=== PATIENT | female | born 1955 | race Caucasian/White ===

== ENCOUNTER 2020-06-10 11:18 | Emergency (ER) | payer MEDICARE, SELFPAY ==
[2020-06-10 11:21] VITALS: BP 150/94; PULSE 84; RESP 16; TEMP 37; O2SAT 97; BMI 24.3
--- NOTE | 2020-06-10 11:22 | ED_ITS ---
HPI - Fall General: Chief Complaint: Extremity Injury, Lower Stated Complaint: RIGHT FOOT PAIN S/P FALL Time Seen by Provider: 06/10/20 11:18 Source: patient and EMS Mode of arrival: EMS Limitations: no limitations History of Present Illness: HPI Narrative: 64-year-old female who was walking and states she fell. States that she got her foot caught on the carpet and twisted it backwards when she fell on a severe ankle pain she rates an 8 out of 10. She states she also hit her head has some slight head and neck pain and is in a c-collar. She any other injuries Associated symptoms-after fall: Denies abdominal pain, chest pain or headache(s) Review of Systems Const: Denies: fever(s), chills, body aches or change in appetite Eyes: Denies: blurry vision or eye discomfort ENMT: Denies: throat pain or dental pain Card: Denies: chest pain Resp: Denies: dyspnea GI: Denies: abdominal pain, nausea, vomiting or diarrhea : Denies: dysuria Musc: Reports: joint pain Skin/Breast: Denies: rash Neuro: Denies: headache(s) Psych: Denies: depression Jose/Lymph: Denies: easy bruising All/Imm: Denies: urticaria Physical Exam Const: COMMON NORMALS: no acute distress, patient oriented x3 and healthy appearing HENMT: COMMON NORMALS: normocephalic and atraumatic HEAD & SCALP: normocephalic and atraumatic Eye: COMMON NORMALS: Equal, round and reactive pupils present and EOMs intact bilaterally PUPIL: Yes Equal, round and reactive pupils present Neck/C-Spine: COMMON NORMALS: full ROM and supple Chest: COMMONS NORMALS: normal inspection of the chest and normal palpation of entire chest wall Resp: COMMON NORMALS: normal respiratory effort, No retractions, No use of accessory muscles and clear to auscultation bilaterally AUSCULTATION: clear to auscultation bilaterally Cardio: COMMON NORMALS: regular rate, regular rhythm and No murmurs present (Cardio) RATE: regular rate RHYTHM: regular rhythm GI: COMMON NORMALS: Normal to inspection, nondistended, normoactive bowel sounds present, Soft to palpation, non-tender and no masses PALPATION: Yes Soft to palpation Extremity: NARRATIVE EXTREMITY EXAM: tenderness over right ankle Neuro: COMMON NORMALS: patient oriented x3, moves all extremities and no focal motor deficits Psych: COMMON NORMALS: mental status grossly normal, Normal thought process present and cooperative THOUGHT PROCESS: Normal thought process present Skin: COMMON NORMALS: no rashes or lesions noted and no wounds GENERAL SKIN EXAM: no rashes or lesions noted Course Vital Signs: Vital signs: Vital Signs Temperature 98.6 F 06/10/20 13:49 Pulse Rate 84 06/10/20 13:49 Respiratory Rate 16 06/10/20 13:49 Blood Pressure 118/80 06/10/20 13:49 Pulse Oximetry 98 06/10/20 13:49 MDM - Fall MDM Narrative: Medical decision making narrative: Patient presents here with ankle fracture from a fall. She does have a distal tibial fracture. Patient's CT here is negative. Patient is stable for discharge back home. She is to follow-up PCP and return if worsening. Will have case management contact her tomorrow about possible intermediate placement as she has had increased falls. Imaging Data^: CT Head: Radiologist's impression: [address] [address] [address] Scan Report Signed Patient: Janiya Suarez I Unit #: [id number] : 1955 Age/Sex: 64 / F ADM Date: 06/10/20 Loc: ER Room/Bed: Attending Dr: Ordering Provider/Ordering MD: Marsha De Leon MD Date of Service: 06/10/20 Procedure(s): CT head wo con* [id number] Accession Number(s): [id number] Report Number: [id number] PROCEDURE INFORMATION: Exam: CT Head Without Contrast Exam date and time: 06/10/2020 11:42 AM Age: 64 years old Clinical indication: Injury or trauma; Fall; Blunt trauma (contusions or hematomas) TECHNIQUE: Imaging protocol: Computed tomography of the head without contrast. Radiation optimization: All CT scans at this facility use at least one of these dose optimization techniques: automated exposure control; mA and/or kV adjustment per patient size (includes targeted exams where dose is matched to clinical indication); or iterative reconstruction. COMPARISON: MR head wo con* [id number] 03/31/2018 9:24 AM RADIATION DOSE METRICS: Total DLP (mGy-cm): 833.13 FINDINGS: Brain: There is no acute intracranial hemorrhage. No extra-axial fluid collection. No evidence of acute infarct. Kendrick white differentiation is intact. There is no evidence of mass. There is no mass effect or midline shift. Cerebral ventricles: No ventriculomegaly. Bones/joints: No acute fracture. Paranasal sinuses: There are mucous retention cysts and mucosal thickening in inferior bilateral maxillary sinuses.There is mild diffuse brain atrophy. Mastoid air cells: No significant mastoid effusion. Soft tissues: Unremarkable as visualized. CT/CT head wo con* [id number] IMPRESSION: No evidence of acute intracranial abnormality. No acute hemorrhage or acute skull fracture. Other CT: Radiologist's impression: [address] [address] [address] Scan Report Signed Patient: Janiya Suarez I Unit #: [id number] : 1955 Age/Sex: 64 / F ADM Date: 06/10/20 Loc: ER Room/Bed: Attending Dr: Ordering Provider/Ordering MD: Marsha De Leon MD Date of Service: 06/10/20 Procedure(s): CT cervical spin wo con* [id number] Accession Number(s): [id number] Report Number: [id number] PROCEDURE INFORMATION: Exam: CT Cervical Spine Without Contrast Exam date and time: 06/10/2020 11:42 AM Age: 64 years old Clinical indication: Injury or trauma; Fall; Blunt trauma TECHNIQUE: Imaging protocol: Computed tomography images of the cervical spine without contrast. Radiation optimization: All CT scans at this facility use at least one of these dose optimization techniques: automated exposure control; mA and/or kV adjustment per patient size (includes targeted exams where dose is matched to clinical indication); or iterative reconstruction. COMPARISON: MRI Cervical Spine w/o* [id number] 01/28/2018 3:14 PM RADIATION DOSE METRICS: Total DLP (mGy-cm): 464.97 FINDINGS: Vertebrae: There is no evidence of acute fracture. Alignment appears unremarkable. Discs/Spinal canal/Neural foramina: There are facet and uncinate osteophytes with cervical neural foraminal narrowing greatest at C3-C4 through C5-C6. There is more focal left posterior osteophyte at C5-C6 causing subarticular recess narrowing. Spinal canal does not overall appear significantly stenotic. Small disc osteophyte complexes. Soft tissues: Unremarkable. Lungs: Lung apices are unremarkable for acute finding. CT/CT cervical spin wo con* [id number] IMPRESSION: No acute fracture. Xray Ortho: Radiologist's impression: [facility] [address] [place] [address] XRay Report Signed Patient: Janiya Suarez I Unit #: [id number] : 1955 Age/Sex: 64 / F ADM Date: 06/10/20 Loc: ER Room/Bed: Attending Dr: Ordering Provider/Ordering MD: Marsha De Leon MD Date of Service: 06/10/20 Procedure(s): XR ankle RT min 3V* [id number] Accession Number(s): [id number] Report Number: [id number] PROCEDURE INFORMATION: Exam: XR Right Ankle Exam date and time: 06/10/2020 11:22 AM Age: 64 years old Clinical indication: Injury or trauma; Fall; Blunt trauma; Ankle; Right TECHNIQUE: Imaging protocol: XR Right ankle. Views: 3 or more views. COMPARISON: No relevant prior studies available. FINDINGS: Bones/joints: There is oblique fracture of distal fibula with mild lateral displacement of distal fracture fragment. Ankle mortise is intact. There is plantar calcaneal spur. Soft tissues: There is anterolateral ankle soft tissue swelling. XR/XR ankle RT min 3V* [id number] IMPRESSION: Fracture of distal fibula. Discharge Plan Discharge Patient Disposition: Home Clinical Impression: Fall Qualifiers: Encounter type: initial encounter Qualified Code(s): W19.XXXA - Unspecified fall, initial encounter Fracture of right fibula Qualifiers: Encounter type: initial encounter Fibula location: distal Fracture type: closed Fracture morphology: unspecified fracture morphology Qualified Code(s): S82.831A - Other fracture of upper and lower end of right fibula, initial encounter for closed fracture Condition: Stable Prescriptions: New Naprosyn 500 mg tablet 500 mg PO BID PRN (Reason: pain) Qty: 20 RF: 0 No Action gabapentin 600 mg Tablet 600 mg PO TID RF: 0 Lamictal 200 mg Tablet 300 mg PO TID RF: 0 citalopram 40 mg Tablet 40 mg PO DAILY RF: 0 amlodipine 10 mg Tablet 10 mg PO DAILY RF: 0 buspirone 15 mg Tablet 15 mg PO TID RF: 0 omeprazole 20 mg Tablet,Delayed Release (Dr/Ec) 20 mg PO DAILY RF: 0 primidone 250 mg Tablet 250 mg PO DAILY RF: 0 Discharge Orders: Discharge Order (Routine); Ordered 06/10/20 Ordered By: Marsha De Leon Referrals: Fredy Padgett DPM [Physician] - 1-3 days Doris Asher DO [Primary Care Provider] - Discharge Diet: Advance as tolerated Discharge Activity: Resume usual activity Patient Instructions: Ankle Fracture (ED) Discharge Date/Time: 06/10/20 14:10 Coding Level of Care Code ED [employer]ides Teacher for Trish Fw[facility] Exam Comprehensive
[2020-06-10 11:25] VITALS: BP 144/90; PULSE 95; RESP 17; O2SAT 97
[2020-06-10 11:28] VITALS: PULSE 85
[2020-06-10 13:49] VITALS: BP 118/80; PULSE 84; RESP 16; TEMP 37; O2SAT 98
--- NOTE | 2020-06-11 08:38 | DCPLANNER ---
manager contact had message to schedule a follow up appointment for patient with ortho. manager contact called the ortho clinic, spoke with Pat, gave clinic patients information. manager contact was told that patients information would be printed and reviewed. Clinic will call patient with appointment information.
--- NOTE | 2020-06-11 10:19 | DCPLANNER ---
Patients sister called vocational case manager about possible skilled nursing placement for patient. senior branch manager spoke with patients sister, was told that patient does not have insurance at this time. senior branch manager informed patients sister that vocational case manager could try and get patient into a skilled nursing, but patient would be private pay. senior branch manager was told that patient can not pay that. senior branch manager stated that patient could apply for [place] medicaid, and when that becomes active, then vocational case manager could try and get patient into a skilled nursing. senior branch manager did inform sister that there were some private pay companies that patient could pay for a in home nurse to help take care of her. senior branch manager informed patients sister that a referral was made to ortho for patient, and that the ortho clinic will be calling with an appointment information.
--- NOTE | 2020-06-12 13:33 | DCPLANNER ---
Patient has a follow up appointment scheduled for Tuesday, June 12 at 1:[address] Padgett. Clinic will call patient with appointment information.
--- NOTE | 2020-06-15 15:29 | DCPLANNER ---
Patient did attend appointment scheduled for 06.12.20 with ortho.
== END 2020-06-10 14:10 | disposition home or self-care (01) ==
PROVIDERS: Emergency Provider Emergency Medicine; PCP Family Medicine
DX: S82.831A Other fracture of upper and lower end of right fibula, initial encounter for closed fracture (principal); W19.XXXA Unspecified fall, initial encounter
CPT/HCPCS: 12345; 29515; 70450; 72125; 73610; 99283

== ENCOUNTER 2020-06-12 14:53 | Outpatient (CLI) | payer MEDICARE, SELFPAY | END 2020-06-12 14:54 | disposition home or self-care (01) | LOC: SPT 14:54 | PROVIDERS: PCP Family Medicine; Visit Provider Podiatrist Foot & Ankle Surgery | DX: Z47.89 Encounter for other orthopedic aftercare (principal); S82.831D Other fracture of upper and lower end of right fibula, subsequent encounter for closed fracture with routine healing; X58.XXXD Exposure to other specified factors, subsequent encounter | CPT/HCPCS: 97760; L4361 ==

== ENCOUNTER → 2020-06-27 10:26 | Outpatient (BNVA) | payer MEDICARE, SELFPAY | PROVIDERS: PCP Family Medicine; Visit Provider Podiatrist Foot & Ankle Surgery | DX: S82.891A Other fracture of right lower leg, initial encounter for closed fracture (principal); X58.XXXA Exposure to other specified factors, initial encounter | CPT/HCPCS: 73610 ==

== ENCOUNTER → 2020-07-16 11:28 | Outpatient (BNVA) | payer MEDICARE, SELFPAY | PROVIDERS: PCP Family Medicine; Visit Provider Podiatrist Foot & Ankle Surgery | DX: S82.434A Nondisplaced oblique fracture of shaft of right fibula, initial encounter for closed fracture (principal); X58.XXXA Exposure to other specified factors, initial encounter | CPT/HCPCS: 73610 ==

== ENCOUNTER → 2020-08-08 15:55 | Outpatient (BNVA) | payer MEDICARE, MEDICAID, SELFPAY | PROVIDERS: PCP Family Medicine; Visit Provider Podiatrist Foot & Ankle Surgery | DX: M25.571 Pain in right ankle and joints of right foot (principal); S82.851G Displaced trimalleolar fracture of right lower leg, subsequent encounter for closed fracture with delayed healing; W19.XXXD Unspecified fall, subsequent encounter | CPT/HCPCS: 73610 ==

== ENCOUNTER → 2020-08-28 13:44 | Outpatient (BNVA) | payer MEDICARE, MEDICAID, SELFPAY | PROVIDERS: PCP Family Medicine; Visit Provider Podiatrist Foot & Ankle Surgery | DX: Z01.818 Encounter for other preprocedural examination (principal) | CPT/HCPCS: 87635 ==